=== PATIENT | female | born 1980 | race Caucasian/White ===

== ENCOUNTER → 2022-04-26 | Outpatient (CLI) | payer OTHER ==
[~2022-04-26] MED LIST: Cyclobenzaprine5 MG PO; IBUP800 PO; Norco 5-325 Ta1 EACH PO
== END | disposition home or self-care (01) ==
LOC: LAB SHORT 07:25 → PLD 07:25
DX: D23.71 Other benign neoplasm of skin of right lower limb, including hip (principal)
CPT/HCPCS: 88305

== ENCOUNTER → 2024-05-17 | Outpatient (CLI) | payer OTHER ==
[2024-05-17 10:23] LABS: BASOPHILS ABSOLUTE AUTO 0.07 K/mm3 (0.00-0.23); BASOPHILS PERCENT AUTO 1 % (0-2); EOSINOPHILS ABSOLUTE AUTO 0.12 K/mm3 (0.00-0.68); EOSINOPHILS PERCENT AUTO 2 % (0-6); Hematocrit 44.2 % (33.0-51.0); Hemoglobin 14.3 g/dL (11.5-16.0); IMMATURE GRAN ABSOLUTE AUTO 0.04 K/mm3 (0.00-0.10); IMMATURE GRAN PERCENT AUTO 1 % (0-1); LYMPHOCYTES ABSOLUTE AUTO 2.19 K/mm3 (0.84-5.20); LYMPHOCYTES PERCENT AUTO 28 % (21-46); MONOCYTES ABSOLUTE AUTO 0.55 K/mm3 (0.16-1.47); MONOCYTES PERCENT AUTO 7 % (4-13); Mean Corpuscular HGB 29.8 pg (26.0-34.0); Mean Corpuscular HGB Conc 32.4 g/dL (31.5-36.5); Mean Corpuscular Volume 92 fL (80-100); Mean Platelet Volume 9.7 fL (9.1-12.4); NEUTROPHILS PERCENT AUTO 62 % (41-73); Platelet Count 301 K/mm3 (150-400); RDW Coefficient Variation 12.3 % (11.7-14.2); RDW Standard Deviation 41.7 fL (35.1-46.3); White Blood Cell Count 7.77 K/mm3 (4.00-11.30)
[2024-05-17 10:47] LABS: Bilirubin, Total 0.5 mg/dL (0.1-1.0); Bun/Creatinine Ratio 9.1 (12.0-20.0); Calcium, Blood 9.8 mg/dL (8.5-10.1); Creatinine, Blood 0.88 mg/dL (0.40-1.00); Free Thyroxine 0.95 ng/dL (0.70-1.60); Globulin, Blood 4.1 g/dL (2.2-4.0); Magnesium, Blood 2.1 mg/dL (1.6-2.4); Potassium, Blood 4.4 mmol/L (3.5-5.5); Thyroid Stimulating Hormone 2.64 uIU/mL (0.360-4.800); Total Protein, Blood 8.1 g/dL (6.4-8.2)
== END ==
LOC: LAB 10:18 → LAB SHORT 10:18
PROVIDERS: Chiropractor
DX: R00.2 Palpitations (principal); R51.9 Headache, unspecified
CPT/HCPCS: 80053; 83735; 84439; 84443; 84484; 85025; 85651

== ENCOUNTER → 2024-05-17 | Outpatient (CLI) | payer OTHER | LOC: LAB SHORT 15:36 → LAB 15:36 | DX: R82.998 Other abnormal findings in urine (principal) | CPT/HCPCS: 87086 ==